=== PATIENT | female | born 1955 | race Caucasian/White ===

== ENCOUNTER → 2019-03-30 10:27 | Outpatient (BNVA) | payer MEDICARE, SELFPAY | PROVIDERS: Family Provider Student in an Organized Health Care Education/Training Program; PCP Student in an Organized Health Care Education/Training Program; Visit Provider Internal Medicine Rheumatology | DX: M05.79 Rheumatoid arthritis with rheumatoid factor of multiple sites without organ or systems involvement (principal); Z79.899 Other long term (current) drug therapy; Z87.19 Personal history of other diseases of the digestive system; F17.200 Nicotine dependence, unspecified, uncomplicated | CPT/HCPCS: 36415; 82565; 84460; 85025; 85651; 86140; 99213 ==

== ENCOUNTER → 2019-03-30 11:00 | Outpatient (BNVA) | payer MEDICARE, SELFPAY | PROVIDERS: Family Provider Student in an Organized Health Care Education/Training Program; PCP Student in an Organized Health Care Education/Training Program; Visit Provider Internal Medicine Rheumatology | DX: M05.79 Rheumatoid arthritis with rheumatoid factor of multiple sites without organ or systems involvement (principal); Z87.19 Personal history of other diseases of the digestive system; F17.200 Nicotine dependence, unspecified, uncomplicated | CPT/HCPCS: 85025 ==

== ENCOUNTER → 2019-08-14 10:57 | Outpatient (BNVA) | payer MEDICARE, SELFPAY | PROVIDERS: Family Provider Student in an Organized Health Care Education/Training Program; PCP Student in an Organized Health Care Education/Training Program; Visit Provider Internal Medicine Rheumatology | DX: Z79.899 Other long term (current) drug therapy (principal); Z11.59 Encounter for screening for other viral diseases; Z11.1 Encounter for screening for respiratory tuberculosis; Z72.89 Other problems related to lifestyle | CPT/HCPCS: 36415; 80076; 82565; 85025; 85651; 86140; 86480; 86704; 86803; 87340 ==

== ENCOUNTER → 2019-09-14 08:32 | Outpatient (BNVA) | payer MEDICARE, SELFPAY | PROVIDERS: Family Provider Student in an Organized Health Care Education/Training Program; PCP Student in an Organized Health Care Education/Training Program; Visit Provider Internal Medicine Rheumatology | DX: M05.79 Rheumatoid arthritis with rheumatoid factor of multiple sites without organ or systems involvement (principal); F17.200 Nicotine dependence, unspecified, uncomplicated; Z87.19 Personal history of other diseases of the digestive system; Z71.89 Other specified counseling; Z79.899 Other long term (current) drug therapy; M06.9 Rheumatoid arthritis, unspecified | CPT/HCPCS: 71046; 73130; 73630; 99214 ==

== ENCOUNTER 2019-09-14 10:06 | Outpatient (CLI) | payer MEDICARE, SELFPAY ==
--- NOTE | 2019-09-14 10:14 | XRR_ITS ---
PROCEDURE INFORMATION: Exam: XR Chest, 2 Views Exam date and time: 09/14/2019 10:30 AM Age: 64 years old Clinical indication: Other: Bilat hands; Patient HX: Rheumatoid arthritis. C/O bilat hand pain TECHNIQUE: Imaging protocol: XR of the chest Views: 2 views. COMPARISON: No relevant prior studies available. FINDINGS: Lungs: No pneumonia or pulmonary edema. Pleural space: No pleural effusion or pneumothorax. Heart/Mediastinum: The cardiac silhouette is not enlarged. The mediastinal contours are normal. Bones/joints: Multilevel disc degeneration in the thoracic spine. XR/XR chest 2V* [id number] IMPRESSION: No acute abnormality.
--- NOTE | 2019-09-14 10:14 | XRR_ITS ---
PROCEDURE INFORMATION: Exam: XR Right Foot Complete Exam date and time: 09/14/2019 10:34 AM Age: 64 years old Clinical indication: Foot; Right; Patient HX: Rheumatoid arthritis. C/O pain bilat feet TECHNIQUE: Imaging protocol: XR Right foot. Views: 3 or more views. COMPARISON: No relevant prior studies available. FINDINGS: Bones/joints: No fracture. No dislocation. There are extensive erosive changes involving the 2nd through 5th metatarsophalangeal joints, and to lesser extent the 1st metatarsophalangeal joint. There is lateral deviation of all toes. There are calcaneal plantar and Achilles tendon insertion enthesophytes. Soft tissues: Suggestion of soft tissue swelling in the forefoot. XR/XR foot RT min 3V* [id number] IMPRESSION: Findings compatible with the history of rheumatoid arthritis.
--- NOTE | 2019-09-14 10:14 | XRR_ITS ---
PROCEDURE INFORMATION: Exam: XR Left Hand Exam date and time: 09/14/2019 10:26 AM Age: 64 years old Clinical indication: Left; Patient HX: Rheumatoid arthritis. C/O pain bilat hands TECHNIQUE: Imaging protocol: XR Left hand. Views: 3 or more views. COMPARISON: No relevant prior studies available. FINDINGS: Bones/joints: No fracture. No dislocation. There is joint space narrowing and erosive changes involving multiple carpal bones, the 2nd, 3rd, and 5th metacarpophalangeal joints, and to lesser extent multiple interphalangeal joints most prominently the 5th proximal interphalangeal joint. There are erosions involving the distal ulna. The findings are consistent with the history of rheumatoid arthritis. Soft tissues: There is soft tissue swelling overlying the dorsal aspect of the metacarpal heads on the lateral view. XR/XR hand LT min 3V* [id number] IMPRESSION: Findings compatible with the history of rheumatoid arthritis.
--- NOTE | 2019-09-14 10:14 | XRR_ITS ---
PROCEDURE INFORMATION: Exam: XR Left Foot Complete Exam date and time: 09/14/2019 10:36 AM Age: 64 years old Clinical indication: Foot; Left; Patient HX: Rheumatoid arthritis. C/O pain bilat feet TECHNIQUE: Imaging protocol: XR Left foot. Views: 3 or more views. COMPARISON: No relevant prior studies available. FINDINGS: Bones/joints: No fracture. No dislocation. There are extensive erosive changes involving the 2nd through 5th metatarsophalangeal joints, and to lesser extent the 1st metatarsophalangeal joint. There is lateral deviation of all toes. There are calcaneal plantar and Achilles tendon insertion enthesophytes. Soft tissues: Suggestion of soft tissue swelling in the forefoot. XR/XR foot LT min 3V* [id number] IMPRESSION: Findings compatible with the history of rheumatoid arthritis.
--- NOTE | 2019-09-14 10:14 | XRR_ITS ---
PROCEDURE INFORMATION: Exam: XR Right Hand Exam date and time: 09/14/2019 10:24 AM Age: 64 years old Clinical indication: Right; Patient HX: Rheumatoid arthritis; C/O pain bilat hands TECHNIQUE: Imaging protocol: XR Right hand. Views: 3 or more views. COMPARISON: No relevant prior studies available. FINDINGS: Bones/joints: No fracture. No dislocation. There is joint space narrowing and erosive changes involving multiple carpal bones, the 1st through 3rd metacarpophalangeal joints, and to lesser extent multiple interphalangeal joints most the 5th proximal interphalangeal joint. The findings are consistent with the history of rheumatoid arthritis. Soft tissues: There is soft tissue swelling overlying the dorsal aspect of the metacarpal heads and wrist on the lateral view. XR/XR hand RT min 3V* [id number] IMPRESSION: Findings compatible with the history of rheumatoid arthritis.
== END 2019-09-14 10:07 | disposition home or self-care (01) ==
PROVIDERS: Family Provider Student in an Organized Health Care Education/Training Program; PCP Student in an Organized Health Care Education/Training Program; Visit Provider Internal Medicine Rheumatology
DX: M06.9 Rheumatoid arthritis, unspecified (principal)
CPT/HCPCS: 71046; 73130; 73630

== ENCOUNTER 2020-03-06 09:59 | Outpatient (CLI) | payer MEDICARE, SELFPAY ==
--- NOTE | 2020-03-11 17:21 | ONC CON_ITS ---
Dr. Lo New Patient Note Patient: Jacinta Jain Unit #: [id number]: [id number] Dicatated By: Sam Lo M.D.Date of Visit: Mar 06, 2020 Onc MED New Patient/Consult Referring Physician: Dr. DENISE MEZA M.D. Chief Complaint: Breast cancer/lymphoma. History of Present Illness: This is a 65 year-old woman with grade 2 invasive carcinoma of the left breast, stage IA (pT2, pN0, M0), ER/NC positive and HER-2/yenifer negative. 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 She had presented with a palpable lump in the left breast. She had been aware of it for a couple of months. She was initially seen in [place] and subsequently evaluated [facility] in [place]. I do not have the actual reports of her imaging studies, but the mammogram apparently did show a suspicious lesion in the 10:30 position of the left breast and ultrasound apparently showed an additional finding of an enlarged right axillary lymph node. Needle biopsy of the breast mass on January 19, 2020 showed grade 2 invasive carcinoma with ductal and lobular features. The tumor was ER and NC positive, both at 100%. It was negative for overexpression of HER-2/yenifer, 0 by IHC. The Ki-67 was 10%. On February 05, 2020 she underwent left breast lumpectomy with left axillary sentinel lymph node biopsy and with excisional biopsy of the enlarged right axillary lymph node. Pathology on the lumpectomy again showed grade 2 invasive carcinoma with mixed ductal and lobular features. It measured 3 x 3 x 2.8 cm. DCIS was noted to be present but not extensive. The anterior and posterior margins were positive for invasive carcinoma. There was no involvement in 3 sentinel lymph nodes. The right axillary lymph node excision showed 1 lymph node with B-cell lymphoma. Flow cytometry identified a monotypic lambda restricted B cell population with phenotypic pattern consistent with small lymphocytic lymphoma/CLL. There was no malignancy in 2 additional nodes. She underwent re-excision lumpectomy on 03/04/20. That pathology report is not yet available. A MammaPrint study was requested on the lumpectomy specimen, and that result is also not yet available. She is seen for further management of the breast cancer. She says she is feeling fine. She has good energy and activity tolerance. Her ECOG score is 0. Her appetite is good. She has no fever, night sweats, or hot flashes. She has rheumatoid arthritis, mainly affecting her hands, wrists, and knees. She has a little bit of cough. She does not complain of shortness of breath or chest pain. She occasionally has nausea. Her acid reflux is adequately managed with omeprazole. She has no complaints with bowel or bladder function. She has postmenopausal, having undergone menopause at age 46. She did not receive any hormone replacement therapy. Past Medical History: Her medical history includes cardiac arrhythmia, gastroesophageal reflux disease, history of diverticulitis, hypertension, and rheumatoid arthritis. Past Surgical History: She underwent needle biopsy of left breast mass on 01/19/2020, left breast lumpectomy with axillary sentinel lymph node biopsy and with right axillary excisional biopsy on 02/05/2020, and reexcision lumpectomy on the left breast on 03/04/2020. Medications: Lisinopril-hydroCHLOROthiazide 1 (20-25 mg) Tablet Oral b.i.d., Metoprolol Tartrate 1 (25 mg) Tablet Oral b.i.d., Omeprazole 1 Tablet (of 40 mg) Capsule Delayed Release Oral, predniSONE 1 Tablet (of 2.5 mg) Oral daily, sulfaSALAzine 2 Tablet (of 500 mg) Oral b.i.d. Allergies: No Known Allergies. Social History: Ms. Jain is . She has a 30-year smoking history which includes 1 pack of cigarettes daily for about 20 years. She had subsequently cut down and she is currently smoking about 1/2 pack/day. She does not drink alcohol. Family History: Father of heart attack at age 70. Mother with congestive heart failure at age 74. A twin brother is in good health. There is no history of breast or ovarian cancer in the family. Review Of Symptoms: Constitutional - She is feeling fine. She has good energy and activity tolerance. Appetite is good and weight is stable. No fever, night sweats, or hot flashes. ECOG score is 0, Eyes - No change in vision, ENMT - No hearing loss or tinnitus. No sinus congestion/drainage. No mouth sores. No sore throat or difficulty swallowing, Hematologic/Lymphatic - No abnormal bruising or bleeding, Respiratory - No shortness of breath. She has a little bit of cough. No pleuritic pain or hemoptysis, Cardiovascular - No angina pain. No palpitations, Gastrointestinal - She has occasional nausea. Her acid reflux is adequately managed with omeprazole. No diarrhea or constipation. No blood in the stool or black stools. She had a colonoscopy last year, Genitourinary (F) - No dysuria or hematuria. No urinary frequency. No urgency or incontinence, Musculoskeletal - She has rheumatoid arthritis. It mainly affects her hands, wrists, and knees, Integumentary - No skin rash or other skin changes, Neurologic - No headache or dizziness. She sometimes has numbness in her hands. No other focal neurologic symptoms, Psychiatric - No anxiety or depression. No insomnia. Vital Signs: Performed on Mar 06, 2020 11:14: 2, 34.01 (HIGH), 1.90 sq.m, 63 in, 96 %, 63 /min, 16 /min, 156/84 mm(hg) (HIGH), 97.8 F (LOW), and 192 lbs (HIGH). Physical Examination: Constitutional - She appears to be in good general health, Eyes - Sclerae nonicteric. Conjunctivae clear, ENMT - No lesions noted in the oral cavity, Neck - No mass or thyromegaly, Hematologic/Lymphatic - No cervical or clavicular adenopathy, Respiratory - Lungs are clear with good air movement bilaterally, Cardiovascular - Heart rhythm is regular. There is no murmur, gallop, or rub noted, Breasts - There are no breast masses noted. There is no axillary adenopathy noted, Abdomen - Soft and non-tender. Liver and spleen are not enlarged. There is no abdominal mass or ascites noted and there is no inguinal adenopathy, Back/Spine - No spine or CVA tenderness noted, Extremities - No edema. Pedal pulses are palpable bilaterally, Integumentary - No rashes. No suspicious skin lesions noted, Neurologic - No focal neurologic deficits noted. Historic Problem List: 1. Invasive carcinoma of the left breast, grade 2, with ductal and lobular features, stage IA (pT2, pN0, M0), ER/NC positive and HER-2/yenifer negative. 2. 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 3. Hypertension. 4. Rheumatoid arthritis. 5. GERD. 6. History of cardiac arrhythmia. Problems Addressed with this Encounter and Plan: 1. Invasive carcinoma of the left breast, grade 2, with ductal and lobular features, stage IA (pT2, pN0, M0), ER/NC positive and HER-2/yenifer negative. She has undergone left breast lumpectomy with axillary sentinel lymph node biopsy followed by reexcision lumpectomy. Pathology on the reexcision is still pending. A MammaPrint has been requested and that result also is pending. The pathology findings were reviewed with the patient and we discussed the clinic complications. She has a T2 primary lesion, but with a node-negative, ER/NC positive and HER-2 tumor, her disease is still Stage IA. She is aware that she will need to undergo radiation to complete local/regional treatment. We discussed the fact that she also will require systemic adjuvant therapy. With favorable prognostic indicators, this will hopefully be limited to adjuvant hormonal therapy alone. However, if the MammaPrint does come back high risk, adjuvant chemotherapy also will be recommended. As such, I will plan to have further discussion with her regarding systemic adjuvant therapy as soon as the MammaPrint results are available. 2. 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 We discussed the fact that this is a low-grade lymphoproliferative disorder, and that in early stages it is typically managed with expectantly. She will need to complete a staging evaluation, but my expectation is that she will just be monitored on observation. However, it also may have implications with regard to the management of her rheumatoid arthritis, as it may be a relative contraindication for any further immunosuppressive therapy. Signed By: Sam Lo M.D. <<Signature on File>>
== END 2020-03-06 10:00 | disposition home or self-care (01) ==
LOC: ONCMED 10:10
PROVIDERS: PCP Student in an Organized Health Care Education/Training Program; Visit Provider Internal Medicine Medical Oncology
DX: C50.212 Malignant neoplasm of upper-inner quadrant of left female breast (principal); Z17.0 Estrogen receptor positive status [ER+]; C83.04 Small cell B-cell lymphoma, lymph nodes of axilla and upper limb; I10 Essential (primary) hypertension; M06.9 Rheumatoid arthritis, unspecified; K21.9 Gastro-esophageal reflux disease without esophagitis; I49.9 Cardiac arrhythmia, unspecified; Z79.899 Other long term (current) drug therapy
CPT/HCPCS: 99205

== ENCOUNTER 2020-03-11 05:39 | Outpatient (CLI) | payer MEDICARE, SELFPAY ==
[2020-03-11 11:10] LABS: Basophils # 0.1 10^3/uL (0.0-0.1); Eosinophils # 0.3 10^3/uL (0.0-0.8); Hematocrit 40.8 % (37.0-47.0); Hemoglobin 13.2 g/dL (11.5-15.3); Lymphocytes # 4.1 10^3/uL (0.8-4.8); Lymphocytes % 37.8 %; Mean Corpuscular HGB Conc 32.4 g/dL (30.0-36.0); Mean Corpuscular Hemoglobin 27.7 pg (28.0-34.0); Mean Corpuscular Volume 85.5 fL (81-99); Mean Platelet Volume 8.7 fL (7.4-10.4); Monocytes # 0.8 10^3/uL (0.2-0.9); Monocytes % 7.5 %; Neutrophils # 5.45 10^3/uL (1.8-7.7); Neutrophils % 50.3 %; Nucleated Red Blood Cells % 0 %; Platelet Count 353 10^3/cmm (130-400); Red Blood Count 4.77 10^6/uL (4.1-5.3); White Blood Count 10.8 10^3/uL (4.0-10.0)
[2020-03-11 11:49] LABS: Alanine Aminotransferase 9 U/L (0-33); Albumin Level 3.8 g/dL (3.5-5.2); Alkaline Phosphatase 92 IU/L (35-105); Aspartate Amino Transferase 13 U/L (0-32); Blood Urea Nitrogen 21 mg/dL (8-23); Calcium 8.9 mg/dL (8.5-10.5); Carbon Dioxide 28 mmol/L (22-29); Chloride 97 mmol/L (98-107); Globulin 3.7 g/dL (1.3-4.6); Glomerular Filtration Rate 83.5 mL/min (90-130); Glucose 114 mg/dL (65-115); Osmolality Calculated 288 mOsm/kg (285-295); Sodium 137 mmol/L (136-145); Total Bilirubin 0.2 mg/dL (0.15-1.2); Total Protein 7.5 g/dL (6.6-8.7)
[2020-03-11 11:51] LABS: Lactate Dehydrogenase 211 U/L (135-214); Slide Review Slide Review Perform
[2020-03-11 12:18] LABS: 25 Hydroxy Vitamin D 6 ng/mL (30-100)
[2020-03-11 16:49] LABS: LAB Peripheral Smear Sent for Review
--- NOTE | 2020-03-11 17:22 | ONC FU_ITS ---
Dr. Lo Patient Follow-Up Note Patient: Jacinta Jain Unit #: [id number]: 1955 Dicatated By: Sam Lo M.D.Date of Visit:Mar 11, 2020 Onc Med Follow-up/Prog Note Chief Complaint: Breast cancer/lymphoma. History of Present Illness: This is a 65 year-old woman with grade 2 invasive carcinoma of the left breast, stage IA (pT2, pN0, M0), ER/FL positive and HER-2/yenifer negative. 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 She had presented with a palpable lump in the left breast. She had been aware of it for a couple of months. She was initially seen in [place] and subsequently evaluated at [facility] in [place]. I do not have the actual reports of her imaging studies, but the mammogram apparently did show a suspicious lesion in the 10:30 position of the left breast and ultrasound apparently showed an additional finding of an enlarged right axillary lymph node. Needle biopsy of the breast mass on January 19, 2020 showed grade 2 invasive carcinoma with ductal and lobular features. The tumor was ER and FL positive, both at 100%. It was negative for overexpression of HER-2/yenifer, 0 by IHC. The Ki-67 was 10%. On February 05, 2020 she underwent left breast lumpectomy with left axillary sentinel lymph node biopsy and with excisional biopsy of the enlarged right axillary lymph node. Pathology on the lumpectomy again showed grade 2 invasive carcinoma with mixed ductal and lobular features. It measured 3 x 3 x 2.8 cm. DCIS was noted to be present but not extensive. The anterior and posterior margins were positive for invasive carcinoma. There was no involvement in 3 sentinel lymph nodes. The right axillary lymph node excision showed 1 lymph node with B-cell lymphoma. Flow cytometry identified a monotypic lambda restricted B cell population with phenotypic pattern consistent with small lymphocytic lymphoma/CLL. There was no malignancy in 2 additional nodes. With the positive surgical margin, she then underwent reexcision lumpectomy on 03/04/20. Her other medical illnesses include rheumatoid arthritis, hypertension, and GERD. She has a history of cardiac arrhythmia and she also has a history of diverticulitis. She has a 30-year smoking history, and she currently is smoking 1/2 pack of cigarettes daily. I had seen her initially on 03/06/2020. The pathology on the reexcision lumpectomy was not available. A MammaPrint study also had been requested on the initial lumpectomy specimen. Her treatment recommendations were deferred pending those result, which subsequently became available. The MammaPrint showed high risk luminal type B disease with an average 10-year risk of recurrence estimated at 29% if untreated. It predicted and absolute benefit of chemotherapy greater than 12% with 94.6% of high risk patients being disease free at 5 years with chemotherapy and hormonal therapy. She returns now to review the results and to discuss further management of the breast cancer. Medications: Lisinopril-hydroCHLOROthiazide 1 (20-25 mg) Tablet Oral b.i.d., Metoprolol Tartrate 1 (25 mg) Tablet Oral b.i.d., Omeprazole 1 Tablet (of 40 mg) Capsule Delayed Release Oral, predniSONE 1 Tablet (of 2.5 mg) Oral daily, sulfaSALAzine 2 Tablet (of 500 mg) Oral b.i.d. Allergies: No Known Allergies. Vital Signs: Performed on Mar 11, 2020 10:01 Height - 63.00 in Weight - 189.8 lbs (LOW) BSA - 1.89 sq.m BMI - 33.62 (HIGH) Temperature - 98.0 F (LOW) Pulse - 96 /min Respiration - 17 /min BP - 147/79 mm(hg) (HIGH) O2 Sat - 96 % Pain - 2 Historic Problem List: 1. Invasive carcinoma of the left breast, grade 2, with ductal and lobular features, stage IA (pT2, pN0, M0), ER/FL positive and HER-2/yenifer negative. Her MammaPrint showed high risk with absolute benefit with adjuvant chemotherapy predicted at greater than 12%. 2. 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 3. Hypertension. 4. Rheumatoid arthritis. 5. GERD. 6. History of cardiac arrhythmia. Problems Addressed with this Encounter and Plan: 1. Invasive carcinoma of the left breast, grade 2, with ductal and lobular features, stage IA (pT2, pN0, M0), ER/FL positive and HER-2/yenifer negative. She has undergone left breast lumpectomy with axillary sentinel lymph node biopsy followed by reexcision lumpectomy. MammaPrint showed high risk with absolute benefit with adjuvant chemotherapy predicted at greater than 12%. The results of the MammaPrint study were reviewed with the patient and her daughter. I specifically went over the predicted 10-year disease-free survival without treatment and the predicted 5-year disease free survival with chemotherapy and hormonal therapy. With the absolute benefit with chemotherapy predicted at greater than 12%, she is recommended to undergo adjuvant chemotherapy with 4 cycles of cyclophosphamide/Taxotere. I reviewed anticipated side effects with chemotherapy which may include nausea/vomiting, diarrhea, fatigue, alopecia, low blood counts, and neuropathy, among others. She had previously indicated that she did not want to have to take chemotherapy. After reviewing the estimated disease-free survivals with and without treatment, she indicates that she still prefers not to take adjuvant chemotherapy. As such, she will be scheduled to have radiation oncology consultation with Dr. Vera, and I will plan to initiate adjuvant hormonal therapy following completion of the radiation. I also did review anticipated side effects with the available hormonal therapies, as she may have difficulty tolerating an aromatase inhibitor with her underlying rheumatoid arthritis. She will require a baseline assessment of her bone health, which will include a DEXA scan and vitamin D level. After r discussing the case with Dr. Vera, I also will plan a staging evaluation for her small lymphocytic lymphoma prior to her radiation oncology consultation. 2. 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 She will have a staging evaluation which will include CBC, comprehensive metabolic profile, LDH level, and PET/CT imaging. In addition, I will review the blood smear, and I will consider whole blood flow cytometry and/or bone marrow aspiration/biopsy as indicated. Signed By: Sam Lo M.D. <<Signature on File>>
--- NOTE | 2020-03-15 15:18 | ONC FU_ITS ---
Dr. Lo Patient Follow-Up Note Patient: Jacinta Jain Unit #: [id number]: 1955 Dicatated By: Sam Lo M.D.Date of Visit:Mar 11, 2020 Onc Med Follow-up/Prog Note Chief Complaint: Breast cancer/lymphoma. History of Present Illness: This is a 65 year-old woman with grade 2 invasive carcinoma of the left breast, stage IA (pT2, pN0, M0), ER/WV positive and HER-2/yenifer negative. 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 She had presented with a palpable lump in the left breast. She had been aware of it for a couple of months. She was initially seen in [place] and subsequently evaluated at [facility] in [place]. I do not have the actual reports of her imaging studies, but the mammogram apparently did show a suspicious lesion in the 10:30 position of the left breast and ultrasound apparently showed an additional finding of an enlarged right axillary lymph node. Needle biopsy of the breast mass on January 19, 2020 showed grade 2 invasive carcinoma with ductal and lobular features. The tumor was ER and WV positive, both at 100%. It was negative for overexpression of HER-2/yenifer, 0 by IHC. The Ki-67 was 10%. On February 05, 2020 she underwent left breast lumpectomy with left axillary sentinel lymph node biopsy and with excisional biopsy of the enlarged right axillary lymph node. Pathology on the lumpectomy again showed grade 2 invasive carcinoma with mixed ductal and lobular features. It measured 3 x 3 x 2.8 cm. DCIS was noted to be present but not extensive. The anterior and posterior margins were positive for invasive carcinoma. There was no involvement in 3 sentinel lymph nodes. The right axillary lymph node excision showed 1 lymph node with B-cell lymphoma. Flow cytometry identified a monotypic lambda restricted B cell population with phenotypic pattern consistent with small lymphocytic lymphoma/CLL. There was no malignancy in 2 additional nodes. With the positive surgical margin, she then underwent reexcision lumpectomy on 03/04/20. Her other medical illnesses include rheumatoid arthritis, hypertension, and GERD. She has a history of cardiac arrhythmia and she also has a history of diverticulitis. She has a 30-year smoking history, and she currently is smoking 1/2 pack of cigarettes daily. I had seen her initially on 03/06/2020. The pathology on the reexcision lumpectomy was not available. A MammaPrint study also had been requested on the initial lumpectomy specimen. Her treatment recommendations were deferred pending those result, which subsequently became available. The MammaPrint showed high risk luminal type B disease with an average 10-year risk of recurrence estimated at 29% if untreated. It predicted and absolute benefit of chemotherapy greater than 12% with 94.6% of high risk patients being disease free at 5 years with chemotherapy and hormonal therapy. She returns now to review the results and to discuss further management of the breast cancer. Medications: Cholecalciferol 1 Tablet (of 50 mcg ) Oral daily, Lisinopril-hydroCHLOROthiazide 1 (20-25 mg) Tablet Oral b.i.d., Metoprolol Tartrate 1 (25 mg) Tablet Oral b.i.d., Omeprazole 1 Tablet (of 40 mg) Capsule Delayed Release Oral, predniSONE 1 Tablet (of 2.5 mg) Oral daily, sulfaSALAzine 2 Tablet (of 500 mg) Oral b.i.d. Allergies: No Known Allergies. Vital Signs: Performed on Mar 11, 2020 10:01 Height - 63.00 in Weight - 189.8 lbs (LOW) BSA - 1.89 sq.m BMI - 33.62 (HIGH) Temperature - 98.0 F (LOW) Pulse - 96 /min Respiration - 17 /min BP - 147/79 mm(hg) (HIGH) O2 Sat - 96 % Pain - 2 Historic Problem List: 1. Invasive carcinoma of the left breast, grade 2, with ductal and lobular features, stage IA (pT2, pN0, M0), ER/WV positive and HER-2/yenifer negative. Her MammaPrint showed high risk with absolute benefit with adjuvant chemotherapy predicted at greater than 12%. 2. 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 3. Hypertension. 4. Rheumatoid arthritis. 5. GERD. 6. History of cardiac arrhythmia. Problems Addressed with this Encounter and Plan: 1. Invasive carcinoma of the left breast, grade 2, with ductal and lobular features, stage IA (pT2, pN0, M0), ER/WV positive and HER-2/yenifer negative. She has undergone left breast lumpectomy with axillary sentinel lymph node biopsy followed by reexcision lumpectomy. MammaPrint showed high risk with absolute benefit with adjuvant chemotherapy predicted at greater than 12%. The results of the MammaPrint study were reviewed with the patient and her daughter. I specifically went over the predicted 10-year disease-free survival without treatment and the predicted 5-year disease free survival with chemotherapy and hormonal therapy. With the absolute benefit with chemotherapy predicted at greater than 12%, she is recommended to undergo adjuvant chemotherapy with 4 cycles of cyclophosphamide/Taxotere. I reviewed anticipated side effects with chemotherapy which may include nausea/vomiting, diarrhea, fatigue, alopecia, low blood counts, and neuropathy, among others. She had previously indicated that she did not want to have to take chemotherapy. After reviewing the estimated disease-free survivals with and without treatment, she indicates that she still prefers not to take adjuvant chemotherapy. As such, she will be scheduled to have radiation oncology consultation with Dr. Vera, and I will plan to initiate adjuvant hormonal therapy following completion of the radiation. I also did review anticipated side effects with the available hormonal therapies, as she may have difficulty tolerating an aromatase inhibitor with her underlying rheumatoid arthritis. She will require a baseline assessment of her bone health, which will include a DEXA scan and vitamin D level. After r discussing the case with Dr. Vera, I also will plan a staging evaluation for her small lymphocytic lymphoma prior to her radiation oncology consultation. 2. 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 She will have a staging evaluation which will include CBC, comprehensive metabolic profile, LDH level, and PET/CT imaging. In addition, I will review the blood smear, and I will consider whole blood flow cytometry and/or bone marrow aspiration/biopsy as indicated. Signed By: Sam Lo M.D. <<Signature on File>>
== END 2020-03-11 05:40 | disposition home or self-care (01) ==
LOC: ONCMED 05:43
PROVIDERS: PCP Student in an Organized Health Care Education/Training Program; Visit Provider Internal Medicine Medical Oncology
DX: C50.212 Malignant neoplasm of upper-inner quadrant of left female breast (principal); Z17.0 Estrogen receptor positive status [ER+]; C83.04 Small cell B-cell lymphoma, lymph nodes of axilla and upper limb; I10 Essential (primary) hypertension; M06.9 Rheumatoid arthritis, unspecified; K21.9 Gastro-esophageal reflux disease without esophagitis; I49.9 Cardiac arrhythmia, unspecified; Z79.899 Other long term (current) drug therapy
CPT/HCPCS: 36415; 80053; 82306; 83615; 85025; 99215

== ENCOUNTER 2020-04-19 12:08 | Outpatient (CLI) | payer MEDICARE, SELFPAY ==
--- NOTE | 2020-04-19 12:21 | US_ITS ---
WS: [id number] ULTRASOUND SOFT TISSUES LEFT axilla. HISTORY: LEFT AXILLA -ABNORMAL PET SCAN,CLL COMPARISON: PET CT 03/16/2020. TECHNIQUE: 2-D and color Doppler imaging is submitted. There are several lymph nodes within the LEFT axilla. Majority of these lymph nodes contain a normal fatty hilum. This lymph node is labeled #2. Asymmetric thickening of the cortex which can be seen wit h neoplastic involvement. The vasculature does not appear to be increased. US/US soft tissue/extremity [id number] IMPRESSION: Mild cortical thickening of one of the lymph nodes in the LEFT axilla. These ch anges can be seen with neoplastic involvement. The vasculature appears normal.
--- NOTE | 2020-04-19 13:26 | XR_ITS ---
WS: [id number] SCREENING DEXA SCAN [id number] CLINICAL INFORMATION: VITAMIN D DEFICIENCY, SYMPTOMS OF OSTEOPOROSIS,BREAST CANCER COMPARISON: None. FINDINGS: The L1-L4 bone mineral density measures 1.005 g/cm2. This corresponds to a T score score of -1.5 and Z score of -0.4. Left femoral neck bone mineral density measures 0.686 g/cm2. This corresponds to a T score of -2.5 an d Z score of -1.7. Right femoral neck bone mineral density measures 0.675 g/cm2. This corresponds to a T score -2.6of an d Z score of -1.7. Mean femoral neck bone mineral density measures 0.681 g/cm2. This corresponds to a T score of -2.6 an d Z score of -1.7. XR/XR DEXA peripheral [id number] IMPRESSION: Osteoporosis in the femoral necks. This is at the lower end of the range. Osteopenia in the lumbar spine. Patient's FRAX calculated 10 year probability for major osteoporotic fracture i s 30.0 % and osteoporotic hip fracture is 13.1%.
== END 2020-04-19 12:09 | disposition home or self-care (01) ==
LOC: RAD 12:08
PROVIDERS: PCP Student in an Organized Health Care Education/Training Program; Visit Provider Internal Medicine Medical Oncology
DX: C83.04 Small cell B-cell lymphoma, lymph nodes of axilla and upper limb (principal); E55.9 Vitamin D deficiency, unspecified; C50.212 Malignant neoplasm of upper-inner quadrant of left female breast; M85.88 Other specified disorders of bone density and structure, other site
CPT/HCPCS: 76882; 77081

== ENCOUNTER 2020-05-01 12:02 | Outpatient (CLI) | payer MEDICARE, SELFPAY ==
--- NOTE | 2020-05-01 12:09 | US_ITS ---
WS: [id number] ULTRASOUND GUIDED BIOPSY LEFT AXILLARY LYMPH NODE. HISTORY: [id number] Procedure, risks, and complications are explained to the patient. Consent was obtained. Skin is clean sed with ChloraPrep and anesthetized with 1% buffered lidocaine. Minimally prominent cortex of the LEFT axillary lymph node. PET scan was indeterminate. Procedure, risks and complications are explained to the patient. Consent is obtained. Lymph node in t he LEFT axilla with a mildly prominent cortex is targeted. Skin is cleansed with ChloraPrep and anest hetized with 1% buffered lidocaine. 7 core biopsies are obtained of this lymph node. No complications were encountered. Specimen is placed in saline for pathology. Final pathology results are pending. US/US biopsy lymph node [id number] IMPRESSION: Uncomplicated ultrasound-guided biopsy of the LEFT axillary lymph node which de monstrates mild thickening of the cortex.
[2020-05-02 13:20] LABS: Miscellaneous Test See Scanned Lab Rpt
== END 2020-05-01 12:03 | disposition home or self-care (01) ==
PROVIDERS: PCP Student in an Organized Health Care Education/Training Program; Visit Provider Internal Medicine Medical Oncology
DX: C83.04 Small cell B-cell lymphoma, lymph nodes of axilla and upper limb (principal)
CPT/HCPCS: 38505; 76942; 88305

== ENCOUNTER 2020-05-29 05:40 | Outpatient (RCR) | payer MEDICARE, SELFPAY ==
--- NOTE | 2020-05-13 14:07 | N.ONRAD NP_ITS ---
Radiation Oncology Consultation Patient Name: Jacinta Jain Date of : 1955 Date of Service: 05/13/2020 Attending Physician: Rancho Vera M.D. Jacinta Jain was seen in consultation this afternoon at the request of Sam Lo M.D. for consideration of adjuvant radiotherapy for the management of her recently diagnosed early stage breast cancer. [facility] [place], [place] for a palpable left breast mass. Initial diagnostic mammography (imaging report has been requested) completed in December 2019 revealed a lesion in the upper-inner quadrant of the left breast. A subsequent ultrasonography confirmed at the 10:30 position the mammographic abnormality and an enlarged right axillary lymph node. A needle biopsy performed on January 19, 2020 diagnosed a grade 2 invasive carcinoma with ductal and lobular features. The breast cancer profile was positive for estrogen receptor (100%) and progesterone receptor (100%) while negative for HER-2 by IHC. The Ki-67 was 10%. A biopsy of the right axillary lymph node obtained on February 05, 2020 identified monoclonal B-cell population suggestive of CLL/SLL. A partial mastectomy with sentinel lymph node biopsy was performed on February 18, 2020 by Mariano Zambrano M.D. The pathology report (personally requested from the outside hospital and reviewed) confirmed a 3 cm carcinoma with mixed ductal and lobular features (grade 2) with ductal carcinoma in situ present with positive anterior and posterior margins for invasive carcinoma. A total of 6 lymph nodes were harvested without metastases. On March 04, 2020, a re-excision and repair of the left breast deformity with BioZorb placement was completed with additional surgical margins negative for neoplasm. A MammaPrint revealed high risk luminal type B with a 29% average 10-year risk of recurrence if untreated. A staging PET CT ordered on March 16, 2020 (independently visualized in [facility]) identified multiple left axillary, retroperitoneal, bilateral common iliac, external iliac, and obturator lymphadenopathy. A subsequent ultrasound of the left axilla ascertained asymmetric thickening of the cortex of an identifiable lymph node. An ultrasound-guided biopsy confirmed CLL/SLL without metastatic breast cancer. She has declined chemotherapy and was evaluated today for adjuvant breast radiotherapy. I discussed the [place] [employer] Staging and specifically the patient's pathologic stage IB (T2N0) breast cancer, I also reviewed the classic study by the NSABP comparing mastectomy, lumpectomy, and lumpectomy with radiotherapy and the Early Breast Cancer Trialist Collaborative [employer] meta-analysis. She is aware that the addition of radiotherapy to lumpectomy provides improvement in local control and overall survival. Prior to beginning treatment, a planning CT scan will be acquired to delineate the clinical target volume. I would recommend a three week course of radiotherapy to the breast. The patient has verbalized understanding and would like to proceed as recommended. Signed by: Dr. Rancho Vera 05/15/2020 10:51:07 AM
--- NOTE | 2020-05-15 | CT_ITS ---
Radiation Therapy Planning CT images; total exam DLP: 986.59 mGy-cm MTDD
--- NOTE | 2020-05-16 | CT_ITS ---
Radiation Therapy Planning CT images; total exam DLP: 736.45 mGy-cm MTDD
--- NOTE | 2020-05-20 11:37 | ONCRAD TMN_ITS ---
Radiation Oncology Treatment Management Note Patient Name: Jacinta Jain Date of : 1955 Date of Service: 05/20/2020 Attending Physician: Rancho Vera M.D. Jacinta Jain is a 65 year-old white female diagnosed with pathological stage IB (T2N0) grade 2 invasive carcinoma with ductal and lobular features of the upper-inner quadrant of the left breast. The breast cancer profile was positive for estrogen receptor and progesterone receptor while negative for HER-2. The Ki-67 of 10%. A partial mastectomy with sentinel lymph node biopsy was performed on February 18, 2020 with a re-excision completed on March 04, 2020 attributable to a positive margin. She has received 2.7 Gy of a prescribed 40 Gy delivered with a 3D conformal radiotherapy plan utilizing opposed tangential portal sr with mixed photon energies and dynamic wedges. Upon review of systems, she denied any breast complaints to radiotherapy. On physical examination, the patient weighed 1871 lbs. Her temperature was 98 ???F with a blood pressure of 136/73 mmHg. Her pulse was 76 bpm and her respiratory rate was 20. There was no erythema within the treatment sr of the left breast. Continue hypofractionated left breast radiotherapy as prescribed. Signed by: Dr. Rancho Vera 05/20/2020 11:35:33 AM
--- NOTE | 2020-05-27 11:21 | ONCRAD TMN_ITS ---
Radiation Oncology Treatment Management Note Patient Name: Jacinta Jain Date of : 1955 Date of Service: 05/27/2020 Attending Physician: Rancho Vera M.D. Jacinta Jain is a 65 year-old white female diagnosed with pathological stage IB (T2N0) grade 2 invasive carcinoma with ductal and lobular features of the upper-inner quadrant of the left breast. The breast cancer profile was positive for estrogen receptor and progesterone receptor while negative for HER-2. The Ki-67 of 10%. A partial mastectomy with sentinel lymph node biopsy was performed on February 18, 2020 with a re-excision completed on March 04, 2020 attributable to a positive margin. She has received 16 Gy of a prescribed 40 Gy delivered with a 3D conformal radiotherapy plan utilizing opposed tangential portal sr with mixed photon energies and dynamic wedges. Upon review of systems, she denied any breast complaints to radiotherapy. On physical examination, the patient weighed 186 lbs. Her temperature was 97.8 ???F with a blood pressure of 135/77 mmHg. Her pulse was 71 bpm and her respiratory rate was 18. There was no erythema within the treatment sr of the left breast. Continue hypofractionated left breast radiotherapy as planned. Signed by: Dr. Rancho Vera 05/27/2020 11:20:00 AM
== END 2020-05-29 23:59 | disposition home or self-care (01) ==
LOC: ONCMED 05:40
PROVIDERS: PCP Student in an Organized Health Care Education/Training Program; Visit Provider Radiology Radiation Oncology
DX: Z51.0 Encounter for antineoplastic radiation therapy (principal); C50.212 Malignant neoplasm of upper-inner quadrant of left female breast; C83.04 Small cell B-cell lymphoma, lymph nodes of axilla and upper limb; Z17.0 Estrogen receptor positive status [ER+]; Z90.12 Acquired absence of left breast and nipple
CPT/HCPCS: 77280; 77295; 77300; 77334; 77387; 77412; 99215

== ENCOUNTER 2020-06-28 05:52 | Outpatient (RCR) | payer MEDICARE, SELFPAY ==
--- NOTE | 2020-06-03 11:23 | ONCRAD TMN_ITS ---
Radiation Oncology Treatment Management Note Patient Name: Jacinta Jain Date of : 1955 Date of Service: 06/03/2020 Attending Physician: Rancho Vera M.D. Jacinta Jain is a 65 year-old white female diagnosed with pathological stage IB (T2N0) grade 2 invasive carcinoma with ductal and lobular features of the upper-inner quadrant of the left breast. The breast cancer profile was positive for estrogen receptor and progesterone receptor while negative for HER-2. The Ki-67 of 10%. A partial mastectomy with sentinel lymph node biopsy was performed on February 18, 2020 with a re-excision completed on March 04, 2020 attributable to a positive margin. She has received 29.3 Gy of a prescribed 40 Gy delivered with a 3D conformal radiotherapy plan utilizing opposed tangential portal sr with mixed photon energies and dynamic wedges. Upon review of systems, she denied any breast complaints to radiotherapy. On physical examination, the patient weighed 192 lbs. Her temperature was 98.9 ???F with a blood pressure of 149/82 mmHg. Her pulse was 77 bpm and her respiratory rate was 20. There was no erythema within the treatment sr of the left breast. Continue hypofractionated left breast radiotherapy as prescribed. Signed by: Dr. Rancho Vera 06/03/2020 11:22:32 AM
[2020-06-04 12:14] LABS: Basophils # 0.1 10^3/uL (0.0-0.1); Basophils % 0.9 %; Eosinophils # 0.2 10^3/uL (0.0-0.8); Eosinophils % 1.9 %; Hematocrit 37.6 % (37.0-47.0); Lymphocytes # 2.2 10^3/uL (0.8-4.8); Lymphocytes % 22.2 %; Mean Corpuscular HGB Conc 31.9 g/dL (30.0-36.0); Mean Corpuscular Hemoglobin 26.6 pg (28.0-34.0); Mean Corpuscular Volume 83.4 fL (81-99); Mean Platelet Volume 8.9 fL (7.4-10.4); Monocytes # 0.9 10^3/uL (0.2-0.9); Monocytes % 9.3 %; Neutrophils % 65.4 %; Nucleated Red Blood Cells % 0 %; Platelet Count 331 10^3/cmm (130-400); Red Blood Count 4.51 10^6/uL (4.1-5.3); Red Cell Distribution Width 15.1 % (12.1-15.1); White Blood Count 9.8 10^3/uL (4.0-10.0)
[2020-06-04 13:01] LABS: 25 Hydroxy Vitamin D 22 ng/mL (30-100); Alanine Aminotransferase 7 U/L (0-33); Albumin Level 3.7 g/dL (3.5-5.2); Alkaline Phosphatase 77 IU/L (35-105); Anion Gap 15.4 (5-19); Aspartate Amino Transferase 15 U/L (0-32); Blood Urea Nitrogen 14 mg/dL (8-23); Calcium 9.2 mg/dL (8.5-10.5); Carbon Dioxide 27 mmol/L (22-29); Chloride 103 mmol/L (98-107); Globulin 3.4 g/dL (1.3-4.6); Glomerular Filtration Rate 99.7 mL/min (90-130); Glucose 93 mg/dL (65-115); Osmolality Calculated 292 mOsm/kg (285-295); Potassium 4.4 mmol/L (3.5-5.1); Sodium 141 mmol/L (136-145); Total Bilirubin 0.2 mg/dL (0.15-1.2); Total Protein 7.1 g/dL (6.6-8.7)
[2020-06-04 14:13] LABS: Alanine Aminotransferase 8 U/L (0-33); Albumin Level 3.7 g/dL (3.5-5.2); Alkaline Phosphatase 77 IU/L (35-105); Aspartate Amino Transferase 15 U/L (0-32); Globulin 3.4 g/dL (1.3-4.6); Total Bilirubin 0.3 mg/dL (0.15-1.2); Total Protein 7.1 g/dL (6.6-8.7)
--- NOTE | 2020-06-16 14:49 | ONC FU_ITS ---
[facility] Patient Note Patient: Jacinta Jain Unit #: [id number]: 1955 Dictated By: Alissa HernandezDate of Visit: Jun 04, 2020 Onc MED Follow-Up/Prog Note Chief Complaint: Breast cancer/lymphoma. History of Present Illness: Ms Jain is a 65 year-old woman with grade 2 invasive carcinoma of the left breast, stage IA (pT2, pN0, M0), ER/WY positive and HER-2/yenifer negative. 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 She had presented with a palpable lump in the left breast. She had been aware of it for a couple of months. She was initially seen in [place] and subsequently evaluated at [facility] in [place]. We do not have the actual reports of her imaging studies, but the mammogram apparently did show a suspicious lesion in the 10:30 position of the left breast and ultrasound apparently showed an additional finding of an enlarged right axillary lymph node. Needle biopsy of the breast mass on January 19, 2020 showed grade 2 invasive carcinoma with ductal and lobular features. The tumor was ER and WY positive, both at 100%. It was negative for overexpression of HER-2/yenifer, 0 by IHC. The Ki-67 was 10%. On February 05, 2020 she underwent left breast lumpectomy with left axillary sentinel lymph node biopsy and with excisional biopsy of the enlarged right axillary lymph node. Pathology on the lumpectomy again showed grade 2 invasive carcinoma with mixed ductal and lobular features. It measured 3 x 3 x 2.8 cm. DCIS was noted to be present but not extensive. The anterior and posterior margins were positive for invasive carcinoma. There was no involvement in 3 sentinel lymph nodes. The right axillary lymph node excision showed 1 lymph node with B-cell lymphoma. Flow cytometry identified a monotypic lambda restricted B cell population with phenotypic pattern consistent with small lymphocytic lymphoma/CLL. There was no malignancy in 2 additional nodes. With the positive surgical margin, she then underwent reexcision lumpectomy on 03/04/20. Her other medical illnesses include rheumatoid arthritis, hypertension, and GERD. She has a history of cardiac arrhythmia and she also has a history of diverticulitis. She has a 30-year smoking history, and she currently is smoking 1/[address] Lo had seen her initially on 03/06/2020. The pathology on the reexcision lumpectomy was not available. A MammaPrint study also had been requested on the initial lumpectomy specimen. Her treatment recommendations were deferred pending those result, which subsequently became available. The MammaPrint showed high risk luminal type B disease with an average 10-year risk of recurrence estimated at 29% if untreated. It predicted and absolute benefit of chemotherapy greater than 12% with 94.6% of high risk patients being disease free at 5 years with chemotherapy and hormonal therapy. The results of the MammaPrint study were reviewed with the patient and her daughter per Dr Lo. His note reports that he specifically went over the predicted 10-year disease-free survival without treatment and the predicted 5-year disease free survival with chemotherapy and hormonal therapy. With the absolute benefit with chemotherapy predicted at greater than 12%, Dr Lo had recommended that she undergo adjuvant chemotherapy with 4 cycles of cyclophosphamide/Taxotere. He had reviewed anticipated side effects with chemotherapy which may include nausea/vomiting, diarrhea, fatigue, alopecia, low blood counts, and neuropathy, among others. She had previously indicated that she did not want to have to take chemotherapy. After reviewing the estimated disease-free survivals with and without treatment, she indicated that she still prefers not to take adjuvant chemotherapy. As such, she was referred to radiation oncology for a consultation with Dr. Vera. Dr Lo informed her the treatment plan then would be to initiate adjuvant hormonal therapy following completion of the radiation. She did opt to pursue radiation therapy. She is still currently undergoing radiation therapy. As of Dr. Vera's June 03, 2020 note, she had received a total of 29.3 Gy of 40 Gy prescribed. She states she has tolerated it well overall. In anticipation of starting her aromatase inhibitor, a screening DEXA scan was obtained on April 19, 2020. The L1-L4 bone mineral density measured -1.5 T score and Z score -0.4. The left femoral neck bone mineral density measured T score -2.5 and Z score -1.7; right femoral neck bone mineral density measured T score -2.6 and a Z score of -1.7. The mean femoral neck bone density measured 0.681 g/cm 2 corresponding to a T score of -2.6 and a Z score of -1.7. Ms. Jain is here today to discuss her DEXA scan report. We will also discuss her aromatase inhibitor to be initiated after completion of her planned radiation therapy. She states overall she is tolerating the radiation pretty well. She does have some fatigue from having to be somewhere every day but is tolerating that well. She denies any fever or chills. She states her skin is holding up well. She is had no mouth sores, sore throat or difficulty swallowing. She denies any new shortness of breath orthopnea. She has had no hemoptysis. She denies any diarrhea or constipation. She states that her rheumatoid arthritis has been bothering her more. She is currently on prednisone 2.5 mg daily, sulfasalazine 1000 mg twice daily and hydroxychloroquine 200 mg daily. She still having significant pain. She indicates she has an appointment to see rheumatology in the next couple of weeks. She has had pain relief with hydrocodone in the past. Her ECOG is 1. We discussed at length the need to treat her osteoporosis, especially with her being on chronic prednisone use. However given that she is currently having pain there is some concern with worsening of that pain due to the osteoporosis treatment or even with aromatase inhibitor. She has not yet completed radiation therapy but will do so within the next few weeks. We will revisit the aromatase inhibitor at that time. She made need to try with exemestane first and see how she tolerates that. She is on cholecalciferol for vitamin D replacement and states she does take calcium once or twice daily as well. She states she also has good dairy intake. Past Medical History: Cardiac arrhythmia Gastroesophageal reflux disease History of diverticulitis Hypertension Rheumatoid arthritis Past Surgical History: Reexcision lumpectomy in 2020 Left breast lumpectomy with axillary sentinel lymph node biopsy and right axillary lymph node biopsy in 2019 Needle biopsy of left breast mass in 2020 Allergies: No Known Allergies. Medications: Cholecalciferol 1 Tablet (of 50 mcg ) Tablet Oral daily Hydroxychloroquine Sulfate 1 Tablet (of 200 mg) Tablet Oral daily Lisinopril-hydroCHLOROthiazide 1 (20-25 mg) Tablet Oral b.i.d. Metoprolol Tartrate 1 (25 mg) Tablet Oral b.i.d. Omeprazole 1 Tablet (of 40 mg) Capsule Delayed Release Oral predniSONE 1 Tablet (of 2.5 mg) Oral daily sulfaSALAzine 2 Tablet (of 500 mg) Tablet Oral b.i.d. Family History: Ms. Jain's mother is : chronic kidney disease at age 74, and congestive heart failure. Ms. Jain's father is : myocardial infarction at age 70. Ms. Jain has 1 brother who is alive. Father of heart attack at age 70. Mother with congestive heart failure at age 74. A twin brother is in good health. There is no history of breast or ovarian cancer in the family. Social History: Ms. Jain is . She is a daily smoker who has smoked 0.5 packs/day for 47 years. She drinks occasionally. She has a 30-year smoking history which includes 1 pack of cigarettes daily for about 20 years. She had subsequently cut down and she is currently smoking about 1/2 pack/day. She does not drink alcohol. Review Of Symptoms: Vital Signs: Performed on Jun 04, 2020 13:13 Height - 63.00 in Weight - 190.6 lbs (LOW) BSA - 1.89 sq.m BMI - 33.76 (HIGH) Temperature - 98.6 F Pulse - 98 /min Respiration - 18 /min BP - 138/84 mm(hg) O2 Sat - 94 % (LOW) Pain - 1,1 - No physically strenuous activity, but ambulatory and able to carry out light or sedentary work (e.g. office work, light house work). (ECOG) Physical Examination: Constitutional Alert, oriented, no acute distress. Skin pink, warm and dry. Head Normocephalic; atraumatic. Eyes Conjunctivae and sclerae are clear and without icterus. Pupils are reactive and equal. Neck Supple without masses or thyromegaly. No jugular venous distension. Respiratory Lungs are clear to auscultation without rhonchi or wheezing. Cardiovascular Regular rate and rhythm of heart without murmurs,clicks, gallops or rubs. Back/Spine Non-tender to palpation. Extremities No visible deformities, no cyanosis, clubbing or edema. Musculoskeletal No tenderness or swelling, normal range of motion without obvious weakness. Integumentary No rashes or lesions. Neurologic No sensory or motor deficits, normal cerebellar function, normal gait. Psychiatric Alert and oriented times three. Coherent speech. Verbalizes understanding of our discussions today. Laboratory:Test performed on Jun 04, 2020 11:35 Sodium 141 mmol/L Vitamin D (25-Hydroxy), Total 22 ng/mL Potassium 4.4 mmol/L Chloride 103 mmol/L CO2 27 mmol/L Anion Gap 15.4 BUN 14 mg/dL Creatinine 0.6 mg/dL Cr Clearance (Est) 124.18 mL/min eGFR 99.7 mL/min Glucose 93 mg/dL Osmolality - Calculated 292 mOsm/kg Calcium 9.2 mg/dL Protein, Total 7.1 g/dL Albumin 3.7 g/dL Globulin 3.4 g/dL Bilirubin, Total 0.2 mg/dL ALT (SGPT) 7 U/L AST (SGOT) 15 U/L Alkaline Phosphatase 77 IU/L WBC 9.8 10 3/uL RBC 4.51 10 6/uL HGB 12.0 g/dL HCT 37.6 % MCV 83.4 fL MCH 26.6 pg MCHC 31.9 g/dL RDW 15.1 % Platelet Count 331 10 3/cmm MPV 8.9 fL Neutrophils 6.40 10 3/uL Lymphocytes 2.2 10 3/uL Monocytes 0.9 10 3/uL Eosinophils 0.2 10 3/uL Basophils 0.1 10 3/uL Neutrophil % 65.4 % Lymphocyte % 22.2 % Monocyte % 9.3 % Eosinophil % 1.9 % Basophils % 0.9 % NRBC % 0 % Test performed on Mar 11, 2020 10:35 LDH (Total) 211 U/L CBC Slide Review Slide Review Perform REVIEW AGREES WITH AUTOMATED DIFF Impression: 1. Invasive carcinoma of the left breast, grade 2, with ductal and lobular features, stage IA (pT2, pN0, M0), ER/WY positive and HER-2/yenifer negative. Her MammaPrint showed high risk with absolute benefit with adjuvant chemotherapy predicted at greater than 12%. 2. 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 3. Hypertension. 4. Rheumatoid arthritis. 5. GERD. 6. History of cardiac arrhythmia. Plan: 1. Invasive carcinoma of the left breast, grade 2, with ductal and lobular features, stage IA (pT2, pN0, M0), ER/WY positive and HER-2/yenifer negative. She has undergone left breast lumpectomy with axillary sentinel lymph node biopsy followed by reexcision lumpectomy. MammaPrint showed high risk with absolute benefit with adjuvant chemotherapy predicted at greater than 12%. The results of the MammaPrint study were reviewed with the patient and her daughter per Dr Lo. His note indicates that he specifically went over the predicted 10-year disease-free survival without treatment and the predicted 5-year disease free survival with chemotherapy and hormonal therapy. With the absolute benefit with chemotherapy predicted at greater than 12%, she was advised to undergo adjuvant chemotherapy with 4 cycles of cyclophosphamide/Taxotere. Dr Lo reviewed anticipated side effects with chemotherapy which may include nausea/vomiting, diarrhea, fatigue, alopecia, low blood counts, and neuropathy, among others. She had previously indicated that she did not want to have to take chemotherapy. After reviewing the estimated disease-free survivals with and without treatment, she indicates that she still prefers NOT to take adjuvant chemotherapy. As such, she was referred to radiation oncology consultation with Dr. Vera. The treatment plan also includes the plan to initiate adjuvant hormonal therapy following completion of the radiation. A. We are planning on a trial of examustane aftercompletion of radiation therapy. B. She does have a history of RA and has had a recent flare. Her pain is controlled with Hydrocodone. 2. 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 A. Ms. Jain had a PET CT on 03/16/2020. It reported postsurgical changes evident in the right axilla. Other right axillary nodes are radiographically benign and demonstrate minimal inflammatory FDG uptake. There are no nodes typical for lymphoma in the right axilla. Inflammatory postsurgical changes are evident in the left breast parenchyma. There are multiple, small left axillary nodes with with SUVs up to 3.2. These may be reactive, but local metastatic disease is not excluded. At the level of the abdomen pelvis, suspicious nodes are evident in the retroperitoneum (right para-aortic), bilateral obturator, common iliacs. An index right axis extremal iliac node measures 2.0 x 1.4 cm with an SUV of 3.8. This pattern suspicious for low-grade lymphoma. Right axillary lymph node flow cytometry analysis from 02/05/2020 reports monoclonal B-cell population detected by flow cytometry with immunophenotype suggestive of CLL/SLL, CD38 negative. The flow cytometry did show monoclonal B cells with coexpression of CD5 and CD23 (48% of total cells), consistent with a chronic B-cell lymphoproliferative disorder. The T cells show a CD4/CD8 ratio of about 5-1 without overt phenotypic abnormality. CD45 was negative, CD 34 was negative. Deletion (6q) was not detected deletion; Del(11 q)(MARGARITO) was not detected; deletion(13 q/-13) was not detected;t(11;14) was not detected; and Del(17p)(TP53) not detected. TRISOMY 12 WAS DETECTED B. Labs from today were reviewed in detail and discussed with Ms. Jain and a copy was given to her. WBC 9.8, hemoglobin 12.0, platelets 1 31,000, ANC is 6400, Lymphocytes are 2200 (22.2%). Potassium 3.4 creatinine 0.6 LFTs are normal LDH was pending at visit vitamin D level is 22. This is improved from March 11, 2020 at which time it was 6. C. She will remain under observation for now for the SLL/CLL 3. Osteoporosis A. Ms. Jain had screening DEXA scan done on April 19, 2020. Her left femoral neck bone mineral density measured 0.686g/cm2. This corresponds to a T score of -2.5. The right femoral neck bone mineral density measures 0.675 g/cm2. This corresponds to a T score of -2.6. Mean femoral neck bone mineral density measures 0.681 g/cm???-this corresponds to a T score of -2.6. B. She also remains on prednisone for long-term use for RA. C. Educational material was given to Ms. Jain regarding potential osteoporosis treatments such as Prolia or possibly yearly Reclast. D. I did not start her on any agents today pending insurance approval as well as concerns for worsening of her RA symptoms. She is having significant pain and requires a refill on her hydrocodone APAP. E. We did discuss potential side effects of the osteoporosis medicine including, but not limited to osteonecrosis of the jaw, joint pain, muscle pain, fatigue, injection or infusion site reaction, allergic reactions. F. Mrs. Jain was advised to continue her current calcium and vitamin D intake. She is on cholecalciferol 50 mcg daily. She states she does do a lot of dairy intake and has not been on a calcium supplementation yet. Her serum calcium level is normal at 9.2. G. We did also discuss weightbearing exercise such as walking that may would help with the osteoporosis. 4. Follow-up plan A. We will see her back after completion of her radiation therapy at which time we will discuss initiating the aromatase inhibitor. B. She will return with a CBC CMP and LDH. C. Mrs. Jain was instructed to contact us in the interim should questions or problems arise. Total time spent in regards to this visit including review of records and plan of care prior to visit; discussion of osteoporosis diagnosis as well as breast cancer treatment plan, the treatment plan for the osteoporosis; identifying potential side effects of both the breast cancer treatment???avoid ALEXX inhibitor and the osteoporosis treatment plan; answering questions and discussing side effect of the patient and management as well as post visit documentation was 65 minutes. Signed By: Alissa Hernandez-. AOCNP Sam Lo MD <<Signature on File>>
--- NOTE | 2020-06-28 10:20 | ONCRAD EPV_ITS ---
Radiation Oncology Follow-Up Note Patient Name: Jacinta Jain Date of : 1955 Date of Service: 06/28/2020 Attending Physician: Rancho Vera M.D. Jacinta Jain returned to my office this morning for a routinely scheduled post radiotherapy follow-up appointment. She completed adjuvant left breast radiotherapy in May for the management of a pathological stage IB (T2N0) grade 2 invasive carcinoma with ductal and lobular features of the upper-inner quadrant of the left breast. The breast cancer profile was positive for estrogen receptor and progesterone receptor while negative for HER-2. The Ki-67 of 10%. A partial mastectomy with sentinel lymph node biopsy was performed on February 18, 2020 with a re-excision completed on March 04, 2020 attributable to a positive margin. Daily radiotherapy was administered between the dates of May 20, 2020 through June 07, 2020. A prescribed dose of 40 Gy was delivered in 15 fractions encompassing 19 elapsed days. On review of systems, she did not report any breast complaints. On physical examination, the patient weighed 182 lbs and the temperature was 98.4 ???F. Her blood pressure was 134/77 mmHg. The pulse was 68 bpm and the respiratory rate was 18 breaths per minute. Examination of the left breast did not reveal any significant erythema. Hyperpigmentation was noted. In summary, Ms. Jain returned for a routine post radiotherapy follow-up. She will continue follow-up as scheduled with her medical oncologist. Signed by: Dr. Rancho Vera 06/28/2020 10:19:29 AM
== END 2020-06-28 23:59 | disposition home or self-care (01) ==
LOC: ONCMED 05:52
PROVIDERS: Internal Medicine Rheumatology; Nurse Practitioner; PCP Student in an Organized Health Care Education/Training Program; Visit Provider Radiology Radiation Oncology
DX: Z51.0 Encounter for antineoplastic radiation therapy (principal); C50.212 Malignant neoplasm of upper-inner quadrant of left female breast; Z17.0 Estrogen receptor positive status [ER+]; I49.9 Cardiac arrhythmia, unspecified; K21.9 Gastro-esophageal reflux disease without esophagitis; I10 Essential (primary) hypertension; M06.9 Rheumatoid arthritis, unspecified; K57.92 Diverticulitis of intestine, part unspecified, without perforation or abscess without bleeding; Z79.899 Other long term (current) drug therapy
CPT/HCPCS: 36415; 77014; 77336; 77387; 77412; 80053; 80076; 82306; 85025; 86140; 99024; 99215

== ENCOUNTER 2020-07-22 06:11 | Outpatient (RCR) | payer MEDICARE, SELFPAY ==
[2020-07-22 09:12] LABS: Basophils # 0.1 10^3/uL (0.0-0.1); Eosinophils # 0.1 10^3/uL (0.0-0.8); Eosinophils % 1.4 %; Hematocrit 37.1 % (37.0-47.0); Hemoglobin 12.1 g/dL (11.5-15.3); Lymphocytes % 22.5 %; Mean Corpuscular HGB Conc 32.6 g/dL (30.0-36.0); Mean Corpuscular Hemoglobin 26.8 pg (28.0-34.0); Mean Corpuscular Volume 82.3 fL (81-99); Mean Platelet Volume 8.4 fL (7.4-10.4); Monocytes # 0.7 10^3/uL (0.2-0.9); Neutrophils # 6.04 10^3/uL (1.8-7.7); Neutrophils % 66.8 %; Nucleated Red Blood Cells % 0 %; Platelet Count 360 10^3/cmm (130-400); Red Blood Count 4.51 10^6/uL (4.1-5.3); Red Cell Distribution Width 15.3 % (12.1-15.1); White Blood Count 9.1 10^3/uL (4.0-10.0)
[2020-07-22 09:26] LABS: Alanine Aminotransferase 9 U/L (0-33); Albumin Level 3.9 g/dL (3.5-5.2); Alkaline Phosphatase 77 IU/L (35-105); Anion Gap 17.1 (5-19); Aspartate Amino Transferase 13 U/L (0-32); Blood Urea Nitrogen 20 mg/dL (8-23); Calcium 8.6 mg/dL (8.5-10.5); Carbon Dioxide 25 mmol/L (22-29); Chloride 102 mmol/L (98-107); Globulin 3.5 g/dL (1.3-4.6); Glomerular Filtration Rate 83.5 mL/min (90-130); Glucose 102 mg/dL (65-115); Osmolality Calculated 293 mOsm/kg (285-295); Potassium 4.1 mmol/L (3.5-5.1); Sodium 140 mmol/L (136-145); Total Bilirubin 0.3 mg/dL (0.15-1.2); Total Protein 7.4 g/dL (6.6-8.7)
[2020-07-22 11:53] LABS: Iron 38 ug/dL (37-145); Percent Saturation 15.5 % (20-50); Total Iron Binding Capacity 244 mcg/dl; Unsaturated Iron Binding 206 ug/dL (112-347)
[2020-07-22 12:06] LABS: Erythrocyte Sedimentation Rate 79 mm/hr (0-15)
[2020-07-22 12:09] LABS: 25 Hydroxy Vitamin D 19 ng/mL (30-100)
--- NOTE | 2020-07-23 07:30 | ONC FU_ITS ---
Dr. Lo Patient Follow-Up Note Patient: Jacinta Jain Unit #: [id number]: 1955 Dicatated By: Sam Lo M.D.Date of Visit:July 22, 2020 Onc Med Follow-up/Prog Note Chief Complaint: Breast cancer/lymphoma. History of Present Illness: This is a 65 year-old woman with grade 2 invasive carcinoma of the left breast, stage IA (pT2, pN0, M0), ER/OR positive and HER-2/yenifer negative. 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 She had presented with a palpable lump in the left breast. She had been aware of it for a couple of months. She was initially seen in [place] and subsequently evaluated at [facility] in [place]. I do not have the actual reports of her imaging studies, but the mammogram apparently did show a suspicious lesion in the 10:30 position of the left breast and ultrasound apparently showed an additional finding of an enlarged right axillary lymph node. Needle biopsy of the breast mass on January 19, 2020 showed grade 2 invasive carcinoma with ductal and lobular features. The tumor was ER and OR positive, both at 100%. It was negative for overexpression of HER-2/yenifer, 0 by IHC. The Ki-67 was 10%. On February 05, 2020 she underwent left breast lumpectomy with left axillary sentinel lymph node biopsy and with excisional biopsy of the enlarged right axillary lymph node. Pathology on the lumpectomy again showed grade 2 invasive carcinoma with mixed ductal and lobular features. It measured 3 x 3 x 2.8 cm. DCIS was noted to be present but not extensive. The anterior and posterior margins were positive for invasive carcinoma. There was no involvement in 3 sentinel lymph nodes. The right axillary lymph node excision showed 1 lymph node with B-cell lymphoma. Flow cytometry identified a monotypic lambda restricted B cell population with phenotypic pattern consistent with small lymphocytic lymphoma/CLL. There was no malignancy in 2 additional nodes. With the positive surgical margin, she then underwent reexcision lumpectomy on 03/04/20. I had seen her initially on 03/06/2020. The pathology on the reexcision lumpectomy was not available. A MammaPrint study also had been requested on the initial lumpectomy specimen. Her treatment recommendations were deferred pending those result, which subsequently became available. The MammaPrint showed high risk luminal type B disease with an average 10-year risk of recurrence estimated at 29% if untreated. It predicted and absolute benefit of chemotherapy greater than 12% with 94.6% of high risk patients being disease free at 5 years with chemotherapy and hormonal therapy. I reviewed the results with her in detail and despite the predicted benefit, she declined the adjuvant chemotherapy. In the meantime, her staging PET/CT on 03/16/2020 showed numerous FDG positive lymph nodes from the level of the retroperitoneum to the level of the external iliacs, suspicious for low-grade lymphoma. With those findings, she then proceded with radiation to the left breast. She completed treatment on 06/07/2020 to a total dose of 4000 cGy administered in 15 fractions. Her other medical illnesses include rheumatoid arthritis, hypertension, and GERD. She has a history of cardiac arrhythmia and she also has a history of diverticulitis. She has a 30-year smoking history, and she currently is smoking 1/2 pack of cigarettes daily. She is seen for a follow-up visit. She is still having discomfort in the left breast following the radiation. She has very limited activity. ECOG score is 2. She has good appetite. She has no fever or night sweats. She does not complain of cough, but she is sometimes short of breath. She is still smoking 1/2 pack of cigarettes daily. She does not complain of chest pain. She has no GI complaints. She has urinary frequency and nocturia. She is having significant pain and swelling in multiple joints associated with the rheumatoid arthritis. She does not complain of headache or dizziness. She sometimes has numbness or tingling in her feet. She is having some depression. Medications: Aleve 2 Tablet (of 220 mg) Tablet Oral daily, Cholecalciferol 1 Tablet (of 50 mcg ) Tablet Oral daily, Hydroxychloroquine Sulfate 1 Tablet (of 200 mg) Tablet Oral daily, Lisinopril-hydroCHLOROthiazide 1 (20-25 mg) Tablet Oral b.i.d., Metoprolol Tartrate 1 (25 mg) Tablet Oral b.i.d., Omeprazole 1 Tablet (of 40 mg) Capsule Delayed Release Oral, predniSONE 1 Tablet (of 2.5 mg) Oral daily, sulfaSALAzine 2 Tablet (of 500 mg) Tablet Oral b.i.d. Allergies: No Known Allergies. Vital Signs: Performed on July 22, 2020 10:45 Height - 63.00 in Weight - 187.2 lbs (HIGH) BSA - 1.88 sq.m BMI - 33.16 (HIGH) Temperature - 98.0 F (LOW) Pulse - 103 /min (HIGH) Respiration - 18 /min BP - 156/78 mm(hg) (HIGH) O2 Sat - 98 % Pain - 4 Fatigue - 5 Physical Examination: Constitutional - She looks pretty good generally, Eyes - Sclerae nonicteric. Conjunctivae clear, ENMT - No lesions noted in the oral cavity, Hematologic/Lymphatic - No cervical or clavicular adenopathy, Respiratory - Lungs are clear with good air movement bilaterally, Cardiovascular - Heart rhythm is regular. There is I/ systolic murmur. There is no gallop or rub noted, Breasts - There are no breast masses noted. There is no axillary adenopathy noted, Abdomen - Soft. Liver and spleen are not enlarged. There is no abdominal mass or ascites noted and there is no inguinal adenopathy, Extremities - No edema, Neurologic - No focal neurologic deficits noted. Lab/Imaging: Test performed on July 22, 2020 11:12 Iron 38 mcg/dL Vitamin D (25-Hydroxy), Total 19 ng/mL Iron Binding Capacity (TIBC) 244 mcg/dl % Iron Saturation 15.5 % UIBC 206 mcg/dL ESR (Sed Rate) 79 mm/hr Test performed on July 22, 2020 08:56 Sodium 140 mmol/L Potassium 4.1 mmol/L Chloride 102 mmol/L CO2 25 mmol/L Anion Gap 17.1 BUN 20 mg/dL Creatinine 0.7 mg/dL Cr Clearance (Est) 104.54 mL/min eGFR 83.5 mL/min Glucose 102 mg/dL Osmolality - Calculated 293 mOsm/kg Calcium 8.6 mg/dL Protein, Total 7.4 g/dL Albumin 3.9 g/dL Globulin 3.5 g/dL Bilirubin, Total 0.3 mg/dL ALT (SGPT) 9 U/L AST (SGOT) 13 U/L Alkaline Phosphatase 77 IU/L WBC 9.1 10 3/uL RBC 4.51 10 6/uL HGB 12.1 g/dL HCT 37.1 % MCV 82.3 fL MCH 26.8 pg MCHC 32.6 g/dL RDW 15.3 % Platelet Count 360 10 3/cmm MPV 8.4 fL Neutrophils 6.04 10 3/uL Lymphocytes 2.0 10 3/uL Monocytes 0.7 10 3/uL Eosinophils 0.1 10 3/uL Basophils 0.1 10 3/uL Neutrophil % 66.8 % Lymphocyte % 22.5 % Monocyte % 8.0 % Eosinophil % 1.4 % Basophils % 1.0 % NRBC % 0 % Problem List: 1. Invasive carcinoma of the left breast, grade 2, with ductal and lobular features, stage IA (pT2, pN0, M0), ER/OR positive and HER-2/yenifer negative. Her MammaPrint showed high risk with absolute benefit with adjuvant chemotherapy predicted at greater than 12%. 2. 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 3. Hypertension. 4. Rheumatoid arthritis. 5. GERD. 6. History of cardiac arrhythmia. Problems Addressed with this Encounter and Plan: 1. Patient with nvasive carcinoma of the left breast, grade 2, with ductal and lobular features, stage IA (pT2, pN0, M0), ER/OR positive and HER-2/yenifer negative. She has undergone left breast lumpectomy with axillary sentinel lymph node biopsy followed by reexcision lumpectomy. MammaPrint showed high risk with absolute benefit with adjuvant chemotherapy predicted at greater than 12%. Those results were reviewed with the patient in detail and despite the predicted benefit, she declined adjuvant chemotherapy. She has proceeded with radiation to the left breast. She completed treatment on 06/07/2020 to a total dose of 4000 cGy administered in 15 fractions. With ER/OR positive disease, she is recommended now to begin adjuvant endocrine therapy. I reviewed options. The recommended treatment in the postmenopausal setting is generally an aromatase inhibitor. I reviewed those side effects which may include osteoporosis and or joint pain, and others. Given the severity of her rheumatoid arthritis pain, she does not even want to try the AI. The other option is tamoxifen which has a small risk of endometrial carcinoma, the range of 4-5 cases per 1000 and also has an increased risk of thromboembolism, similar to the risk with oral contraceptives or HRT. It also will be more likely to cause hot flashes as a side effect. She is willing to try the tamoxifen, which will be initiated at a standard dosage of 20 mg daily. I am going to also have her start venlafaxine ER 75 mg daily, as she also is having some depression. The recommended duration of treatment will be 5 years. She will be scheduled for a follow-up visit in 3 months. 2. She has borderline anemic with low transferrin saturation, consistent with iron deficiency. She will begin oral iron supplementation. 3. She has evidence of osteoporosis in the left femoral neck and osteopenia in the lumbar spine by DEXA scan in April 2020. She also has evidence of vitamin D deficiency. She will begin vitamin D supplementation with vitamin D3 1000 units daily and with vitamin D2 50,000 units weekly for 4 weeks and then monthly. She will be given the option of taking oral bisphosphonate weekly or a Prolia injection every 6 months. 4. 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 Her staging PET/CT on 03/16/2020 showed numerous FDG positive lymph nodes from the level of the retroperitoneum to the level of the external iliacs, suspicious for low-grade lymphoma. In the absence of any bulky or otherwise symptomatic disease, she will be managed expectantly for the lymphoma. 5. She has having significant joint pain and swelling and her sed rate and CRP are both significantly elevated. We will discuss this with Dr. Venegas. Signed By: Sam Lo M.D. <<Signature on File>>
== END 2020-07-29 23:59 | disposition home or self-care (01) ==
LOC: ONCMED 06:11
PROVIDERS: PCP Student in an Organized Health Care Education/Training Program; Visit Provider Internal Medicine Medical Oncology
DX: C50.812 Malignant neoplasm of overlapping sites of left female breast (principal); Z17.0 Estrogen receptor positive status [ER+]; C83.34 Diffuse large B-cell lymphoma, lymph nodes of axilla and upper limb; I10 Essential (primary) hypertension; M06.9 Rheumatoid arthritis, unspecified; K21.9 Gastro-esophageal reflux disease without esophagitis; I49.9 Cardiac arrhythmia, unspecified; M81.0 Age-related osteoporosis without current pathological fracture; Z79.811 Long term (current) use of aromatase inhibitors; Z92.21 Personal history of antineoplastic chemotherapy; Z92.3 Personal history of irradiation
CPT/HCPCS: 80053; 82306; 83540; 83550; 85025; 85651; 86140; 99215

== ENCOUNTER → 2020-08-01 13:29 | Outpatient (BNVA) | payer MEDICARE, SELFPAY | PROVIDERS: PCP Student in an Organized Health Care Education/Training Program; Visit Provider Internal Medicine Rheumatology | DX: M05.9 Rheumatoid arthritis with rheumatoid factor, unspecified (principal); Z79.899 Other long term (current) drug therapy; Z79.1 Long term (current) use of non-steroidal anti-inflammatories (NSAID); C50.912 Malignant neoplasm of unspecified site of left female breast; F17.210 Nicotine dependence, cigarettes, uncomplicated | CPT/HCPCS: 99214 ==

== ENCOUNTER 2020-10-22 14:14 | Outpatient (CLI) | payer MEDICARE, SELFPAY ==
--- NOTE | 2020-10-23 06:33 | ONC FU_ITS ---
Dr. Lo Patient Follow-Up Note Patient: Jacinta Jain Unit #: [id number]: [id number] Dicatated By: Sam Lo M.D.Date of Visit:Oct 22, 2020 Onc Med Follow-up/Prog Note Chief Complaint: Breast cancer/lymphoma. History of Present Illness: This is a 65 year-old woman with grade 2 invasive carcinoma of the left breast, stage IA (pT2, pN0, M0), ER/SC positive and HER-2/yenifer negative. 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 She had presented with a palpable lump in the left breast. She had been aware of it for a couple of months. She was initially seen in [place] and subsequently evaluated at the [facility] in [place]. I do not have the actual reports of her imaging studies, but the mammogram apparently did show a suspicious lesion in the 10:30 position of the left breast and ultrasound apparently showed an additional finding of an enlarged right axillary lymph node. Needle biopsy of the breast mass on January 19, 2020 showed grade 2 invasive carcinoma with ductal and lobular features. The tumor was ER and SC positive, both at 100%. It was negative for overexpression of HER-2/yenifer, 0 by IHC. The Ki-67 was 10%. On February 05, 2020 she underwent left breast lumpectomy with left axillary sentinel lymph node biopsy and with excisional biopsy of the enlarged right axillary lymph node. Pathology on the lumpectomy again showed grade 2 invasive carcinoma with mixed ductal and lobular features. It measured 3 x 3 x 2.8 cm. DCIS was noted to be present but not extensive. The anterior and posterior margins were positive for invasive carcinoma. There was no involvement in 3 sentinel lymph nodes. The right axillary lymph node excision showed 1 lymph node with B-cell lymphoma. Flow cytometry identified a monotypic lambda restricted B cell population with phenotypic pattern consistent with small lymphocytic lymphoma/CLL. There was no malignancy in 2 additional nodes. With the positive surgical margin, she then underwent reexcision lumpectomy on 03/04/20. I had seen her initially on 03/06/2020. The pathology on the reexcision lumpectomy was not available. A MammaPrint study also had been requested on the initial lumpectomy specimen. Her treatment recommendations were deferred pending those result, which subsequently became available. The MammaPrint showed high risk luminal type B disease with an average 10-year risk of recurrence estimated at 29% if untreated. It predicted and absolute benefit of chemotherapy greater than 12% with 94.6% of high risk patients being disease free at 5 years with chemotherapy and hormonal therapy. I reviewed the results with her in detail and despite the predicted benefit, she declined the adjuvant chemotherapy. In the meantime, her staging PET/CT on 03/16/2020 showed numerous FDG positive lymph nodes from the level of the retroperitoneum to the level of the external iliacs, suspicious for low-grade lymphoma. With those findings, she then proceded with radiation to the left breast. She completed treatment on 06/07/2020 to a total dose of 4000 cGy administered in 15 fractions. She began adjuvant hormonal therapy with tamoxifen 20 mg daily in June 2020. She declined to try an aromatase inhibitor due to her underlying arthritis. Her other medical illnesses include rheumatoid arthritis, hypertension, and GERD. She has a history of cardiac arrhythmia and she also has a history of diverticulitis. She has a 30-year smoking history, and she currently is smoking 1/2 pack of cigarettes daily. She is seen for a follow-up visit. She has been feeling a little better generally. She had her prednisone dosage increased to 10 mg daily, which has helped her joint pain significantly. Her energy level is still variable, but she is able to do light work. ECOG score is 1. She has good appetite. She has no fever, night sweats, or hot flashes. She has occasional sinus drainage. She does have some cough. She is still smoking 1/2 pack of cigarettes daily. She does not complain of shortness of breath and she has not been having chest pain. She has no GI or complaints. She does not complain of headache or dizziness. She has no numbness/paresthesia or other focal neurologic symptoms. She did stop taking venlafaxine. She is sometimes pearson, but overall she has been doing okay without it. Medications: Aleve 2 Tablet (of 220 mg) Tablet Oral daily, Cholecalciferol 1 Tablet (of 2000 Units) Oral daily, Ferrous Sulfate 1 (325 (65 fe) mg) Tablet Oral daily, Fosamax 1 (70 mg) Tablet Oral q 7 days, Hydroxychloroquine Sulfate 1 Tablet (of 200 mg) Tablet Oral daily, Lisinopril-hydroCHLOROthiazide 1 (20-25 mg) Tablet Oral b.i.d., Metoprolol Tartrate 1 (25 mg) Tablet Oral b.i.d., Omeprazole 1 Tablet (of 40 mg) Capsule Delayed Release Oral, predniSONE 1 Tablet (of 10 mg) Oral daily, sulfaSALAzine 2 Tablet (of 500 mg) Tablet Oral b.i.d., Tamoxifen Citrate 1 (20 mg) Tablet Oral daily, Venlafaxine HCl ER 1 (75 mg) Capsule SR 24 HR Oral daily, Vitamin D2 (50,000 Units) Tablet Oral Take as Directed Allergies: No Known Allergies. Vital Signs: Performed on Oct 22, 2020 14:40 Height - 63.00 in Weight - 197.4 lbs (HIGH) BSA - 1.92 sq.m BMI - 34.97 (HIGH) Temperature - 97.6 F (LOW) Pulse - 82 /min Respiration - 18 /min BP - 127/80 mm(hg) O2 Sat - 96 % Pain - 5 Fatigue - 3 Physical Examination: Constitutional - She looks pretty good generally, Eyes - Sclerae nonicteric. Conjunctivae clear, ENMT - No lesions noted in the oral cavity, Hematologic/Lymphatic - No cervical, clavicular, or axillary adenopathy, Respiratory - Lungs sound clear with diminished air movement bilaterally, Cardiovascular - Heart rhythm is regular. There is I/ systolic murmur. There is no gallop or rub noted, Abdomen - Soft. Liver and spleen are not enlarged. There is no abdominal mass or ascites noted and there is no inguinal adenopathy, Extremities - No edema, Neurologic - No focal neurologic deficits noted. Lab/Imaging: Test performed on July 22, 2020 11:12 Iron 38 mcg/dL Vitamin D (25-Hydroxy), Total 19 ng/mL Iron Binding Capacity (TIBC) 244 mcg/dl % Iron Saturation 15.5 % UIBC 206 mcg/dL ESR (Sed Rate) 79 mm/hr Test performed on July 22, 2020 08:56 Sodium 140 mmol/L Potassium 4.1 mmol/L Chloride 102 mmol/L CO2 25 mmol/L Anion Gap 17.1 BUN 20 mg/dL Creatinine 0.7 mg/dL Cr Clearance (Est) 104.54 mL/min eGFR 83.5 mL/min Glucose 102 mg/dL Osmolality - Calculated 293 mOsm/kg Calcium 8.6 mg/dL Protein, Total 7.4 g/dL Albumin 3.9 g/dL Globulin 3.5 g/dL Bilirubin, Total 0.3 mg/dL ALT (SGPT) 9 U/L AST (SGOT) 13 U/L Alkaline Phosphatase 77 IU/L WBC 9.1 10 3/uL RBC 4.51 10 6/uL HGB 12.1 g/dL HCT 37.1 % MCV 82.3 fL MCH 26.8 pg MCHC 32.6 g/dL RDW 15.3 % Platelet Count 360 10 3/cmm MPV 8.4 fL Neutrophils 6.04 10 3/uL Lymphocytes 2.0 10 3/uL Monocytes 0.7 10 3/uL Eosinophils 0.1 10 3/uL Basophils 0.1 10 3/uL Neutrophil % 66.8 % Lymphocyte % 22.5 % Monocyte % 8.0 % Eosinophil % 1.4 % Basophils % 1.0 % NRBC % 0 % Problem List: 1. Invasive carcinoma of the left breast, grade 2, with ductal and lobular features, stage IA (pT2, pN0, M0), ER/SC positive and HER-2/yenifer negative. Her MammaPrint showed high risk with absolute benefit with adjuvant chemotherapy predicted at greater than 12%. 2. 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 3. Hypertension. 4. Rheumatoid arthritis. 5. GERD. 6. History of cardiac arrhythmia. Problems Addressed with this Encounter and Plan: 1. Patient with invasive carcinoma of the left breast, grade 2, with ductal and lobular features, stage IA (pT2, pN0, M0), ER/SC positive and HER-2/yenifer negative. She underwent left breast lumpectomy with axillary sentinel lymph node biopsy followed by reexcision lumpectomy. MammaPrint showed high risk with absolute benefit with adjuvant chemotherapy predicted at greater than 12%. Those results were reviewed with the patient in detail and despite the predicted benefit, she declined adjuvant chemotherapy. She was then given radiation to the left breast, completed on 06/07/2020 to a total dose of 4000 cGy administered in 15 fractions. With ER/SC positive disease, she was then recommended to begin adjuvant endocrine therapy. Due to her underlying arthritis she declined to try an aromatase inhibitor. As such, she began adjuvant therapy with tamoxifen in June 2020. Thus far she has been tolerating it without significant adverse effects. As such, she continues tamoxifen 20 mg daily. I will see her again in 6 months. 2. She has been borderline anemic with low transferrin saturation, consistent with iron deficiency. She will continues on oral iron supplementation. 3. She has evidence of osteoporosis in the left femoral neck and osteopenia in the lumbar spine by DEXA scan in April 2020. She has been on vitamin D supplementation, and in June 2019 when she began treatment with alendronate. 4. 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 Her staging PET/CT on 03/16/2020 showed numerous FDG positive lymph nodes from the level of the retroperitoneum to the level of the external iliacs, suspicious for low-grade lymphoma. In the absence of any bulky or otherwise symptomatic disease, she will be managed expectantly for the lymphoma. Signed By: Sam Lo M.D. <<Signature on File>>
== END 2020-10-22 14:15 | disposition home or self-care (01) ==
LOC: ONCMED 14:17
PROVIDERS: PCP Student in an Organized Health Care Education/Training Program; Visit Provider Internal Medicine Medical Oncology
DX: C50.212 Malignant neoplasm of upper-inner quadrant of left female breast (principal); Z17.0 Estrogen receptor positive status [ER+]; C91.10 Chronic lymphocytic leukemia of B-cell type not having achieved remission; D64.9 Anemia, unspecified; F17.210 Nicotine dependence, cigarettes, uncomplicated; M81.0 Age-related osteoporosis without current pathological fracture; M85.88 Other specified disorders of bone density and structure, other site; Z79.810 Long term (current) use of selective estrogen receptor modulators (SERMs); Z79.899 Other long term (current) drug therapy; Z79.52 Long term (current) use of systemic steroids; Z92.3 Personal history of irradiation
CPT/HCPCS: 99214

== ENCOUNTER → 2020-12-04 12:45 | Outpatient (BNVA) | payer MEDICARE, SELFPAY | PROVIDERS: PCP Student in an Organized Health Care Education/Training Program; Visit Provider Internal Medicine Rheumatology | DX: M05.9 Rheumatoid arthritis with rheumatoid factor, unspecified (principal); Z79.899 Other long term (current) drug therapy; C50.912 Malignant neoplasm of unspecified site of left female breast; Z79.1 Long term (current) use of non-steroidal anti-inflammatories (NSAID); Z92.3 Personal history of irradiation; Z87.19 Personal history of other diseases of the digestive system; Z71.89 Other specified counseling; F17.210 Nicotine dependence, cigarettes, uncomplicated | CPT/HCPCS: 99214 ==

== ENCOUNTER → 2021-06-18 09:14 | Outpatient (BNVA) | payer MEDICARE, SELFPAY | PROVIDERS: PCP Student in an Organized Health Care Education/Training Program; Visit Provider Specialist | DX: M25.461 Effusion, right knee (principal); F17.210 Nicotine dependence, cigarettes, uncomplicated; M17.11 Unilateral primary osteoarthritis, right knee; M05.79 Rheumatoid arthritis with rheumatoid factor of multiple sites without organ or systems involvement; M25.569 Pain in unspecified knee | CPT/HCPCS: 20610; 73560; 73565; 80503; 87070; 87075; 87205; 89050; 99204; J1100; J2795; J3301 ==

== ENCOUNTER → 2021-07-23 13:17 | Outpatient (BNVA) | payer MEDICARE, SELFPAY | PROVIDERS: PCP Student in an Organized Health Care Education/Training Program; Visit Provider Specialist | DX: M17.12 Unilateral primary osteoarthritis, left knee (principal); M25.562 Pain in left knee | CPT/HCPCS: 20610; 73560; 73565; 80503; 89050; 99213; J7326 ==

== ENCOUNTER → 2022-02-26 11:11 | Outpatient (BNVA) | payer MEDICARE, SELFPAY | PROVIDERS: PCP Student in an Organized Health Care Education/Training Program; Visit Provider Specialist | DX: M17.0 Bilateral primary osteoarthritis of knee (principal) | CPT/HCPCS: 20610; J7326 ==

== ENCOUNTER → 2022-07-16 11:12 | Outpatient (BNVA) | payer MEDICARE, SELFPAY | PROVIDERS: PCP Student in an Organized Health Care Education/Training Program; Visit Provider Specialist | DX: M17.0 Bilateral primary osteoarthritis of knee (principal) | CPT/HCPCS: 20610; 80503; 89050; J1100; J2795; J3301 ==

== ENCOUNTER → 2022-09-24 15:19 | Outpatient (BNVA) | payer MEDICARE, SELFPAY | PROVIDERS: PCP Student in an Organized Health Care Education/Training Program; Visit Provider Specialist | DX: M17.0 Bilateral primary osteoarthritis of knee (principal) | CPT/HCPCS: 20610; J7326 ==

== ENCOUNTER → 2023-02-05 10:16 | Outpatient (BNVA) | payer MEDICARE, SELFPAY | PROVIDERS: PCP Student in an Organized Health Care Education/Training Program; Visit Provider Nurse Practitioner | DX: M17.0 Bilateral primary osteoarthritis of knee (principal); Z71.89 Other specified counseling | CPT/HCPCS: 20610; J1100; J2795; J3301 ==

== ENCOUNTER → 2023-04-07 14:44 | Outpatient (BNVA) | payer MEDICARE, SELFPAY | PROVIDERS: PCP Nurse Practitioner Family; Visit Provider Nurse Practitioner | DX: M17.0 Bilateral primary osteoarthritis of knee (principal); Z71.89 Other specified counseling | CPT/HCPCS: 20610; J1100; J2795; J3301 ==

== ENCOUNTER → 2023-07-16 10:36 | Outpatient (BNVA) | payer MEDICARE, SELFPAY | PROVIDERS: PCP Nurse Practitioner Family; Visit Provider Specialist | DX: M17.0 Bilateral primary osteoarthritis of knee (principal); Z71.89 Other specified counseling | CPT/HCPCS: 20610 ==

== ENCOUNTER → 2023-10-22 10:45 | Outpatient (BNVA) | payer MEDICARE, SELFPAY | PROVIDERS: Visit Provider Specialist | DX: M17.0 Bilateral primary osteoarthritis of knee (principal); Z71.89 Other specified counseling | CPT/HCPCS: 20610; J1100; J2795; J3301 ==

== ENCOUNTER → 2024-02-04 11:00 | Outpatient (BNVA) | payer MEDICARE, SELFPAY | PROVIDERS: PCP Nurse Practitioner Family; Visit Provider Nurse Practitioner | DX: M17.0 Bilateral primary osteoarthritis of knee (principal); Z71.89 Other specified counseling | CPT/HCPCS: 20610; J1100; J2795; J3301 ==

== ENCOUNTER → 2024-07-13 14:43 | Outpatient (BNVA) | payer MEDICARE, SELFPAY | PROVIDERS: PCP Nurse Practitioner Family; Visit Provider Dermatology | DX: L72.0 Epidermal cyst (principal); L82.1 Other seborrheic keratosis; D69.2 Other nonthrombocytopenic purpura; B07.8 Other viral warts; L29.89 Other pruritus | CPT/HCPCS: 11102; 17110; 99203 ==

== ENCOUNTER → 2024-08-18 10:35 | Outpatient (BNVA) | payer MEDICARE, SELFPAY | PROVIDERS: PCP Nurse Practitioner Family; Visit Provider Nurse Practitioner | DX: M17.0 Bilateral primary osteoarthritis of knee (principal) | CPT/HCPCS: 20610; J1100; J2795; J3301; J9999 ==

== ENCOUNTER → 2024-12-01 11:11 | Outpatient (BNVA) | payer MEDICARE, SELFPAY | PROVIDERS: PCP Nurse Practitioner Family; Visit Provider Nurse Practitioner | DX: M17.0 Bilateral primary osteoarthritis of knee (principal); Z71.89 Other specified counseling | CPT/HCPCS: 20610; 73560; 73565; 99214; J1100; J2795; J3301; J9999 ==

== ENCOUNTER → 2024-12-12 14:56 | Outpatient (BNVA) | payer MEDICARE, SELFPAY | PROVIDERS: PCP Nurse Practitioner Family; Visit Provider Podiatrist Foot & Ankle Surgery | DX: I73.9 Peripheral vascular disease, unspecified (principal); B35.3 Tinea pedis; L60.3 Nail dystrophy | CPT/HCPCS: 11721; 99203 ==